=== PATIENT | female | born 1960 | race Caucasian/White ===

== ENCOUNTER 2017-05-05 07:04 | Emergency (ER) | payer BC ==
[2017-05-05 07:26] VITALS: BP 179/107
--- NOTE | 2017-05-05 08:12 | UC ---
Elbow Pain - HPI Summary HPI Summary: left elbow pain x 2 hrs s/p fall on ice this morning , injury to left elbow and left forearm sever pain of the left elbow , no swelling, cannot move her elbow due to sever pain - History of Current Complaint Chief Complaint: UCUpperExtremity Stated Complaint: LEFT ARM INJURY Time Seen by Provider: 05/05/17 07:08 Hx Obtained From: Patient Onset/Duration: Hours - 2, Atraumatic, Still Present Severity Initially: Severe Severity Currently: Severe Pain Intensity: 10 Pain Scale Used: 0-10 Numeric Location Of Pain: Is Discrete @ - left elbow / left forearm Character: Aching, Throbbing Aggravating Factor(s): Movement Alleviating Factor(s): Rest, Ice Associated Signs And Symptoms: Positive: Weakness, Numbness/Tingling. Negative : Swelling, Redness, Bruising, Fever - Allergies/Home Medications Allergies/Adverse Reactions: Allergies Allergy/AdvReac Type Severity Reaction Status Date / Time No Known Allergies Allergy Verified 05/05/17 07:11 Home Medications: Home Medications Cholecalciferol TAB* [Vitamin D TAB*] 1,000 unit PO DAILY 05/05/17 [History Confirmed 05/05/17] Levothyroxine TAB* [Synthroid TAB*] 25 mcg PO DAILY 05/05/17 [History Confirmed 05/05/17] Multivitamin [Multivitamins] 1 cap PO 05/05/17 [History] PMH/Surg Hx/FS Hx/Imm Hx Endocrine History: Thyroid Disease, Hypothyroidism Cancer History: Breast Cancer - Surgical History Surgical History: Yes Surgery Procedure, Year, and Place: MASECTOMY; LUMPECTOMY; HYSTERECTOMY - Family History Known Family History: Negative: Diabetes - Social History Alcohol Use: Rare Substance Use Type: None Smoking Status (MU): Never Smoked Tobacco Review of Systems Constitutional: Negative Skin: Negative Eyes: Negative ENT: Negative Respiratory: Negative Musculoskeletal: Arthralgia - left elbow Is Patient Immunocompromised?: No All Other Systems Reviewed And Are Negative: Yes Physical Exam Triage Information Reviewed: Yes Appearance: Well-Nourished, Pain Distress Vital Signs: Initial Vital Signs Temp 98.4 F 05/05/17 07:13 Pulse 78 05/05/17 07:13 Resp 20 05/05/17 07:13 BP 179/107 05/05/17 07:13 Pulse Ox 100 05/05/17 07:13 Vital Signs Reviewed: Yes Eyes: Positive: Conjunctiva Clear ENT: Positive: Normal ENT inspection, Hearing grossly normal, Pharynx normal Neck exam: Normal Neck: Positive: Supple, Nontender, No Lymphadenopathy Respiratory Exam: Normal Respiratory: Positive: Chest non-tender, Lungs clear, Normal breath sounds Cardiovascular Exam: Normal Cardiovascular: Positive: RRR, No Murmur, Pulses Normal Musculoskeletal: Positive: Other: - left elbow: + radial head tenderness, no swelling , limited ROM on flexion and extension also limited ROM on supination and pronation Neurological: Positive: Alert Psychological Exam: Normal Skin Exam: Normal Elbow Pain Course/Dx - Differential Dx/Diagnosis Provider Diagnoses: fracuture left elbow Discharge - Discharge Plan Condition: Stable Disposition: HOME Patient Education Materials: Elbow Fracture (ED) Referrals: Zeeshan Keane MD [Medical Doctor] - As Soon As Possible Noé Chu DO [Primary Care Provider] -
--- NOTE | 2017-05-05 08:14 | RAD ---
HISTORY: Wrist pain, fall on ice COMPARISONS: None VIEWS: 3, Frontal, lateral, and oblique views of the left wrist FINDINGS: BONE DENSITY: Normal. BONES: There is no displaced fracture. JOINTS: There is no arthropathy. ALIGNMENT: There is no dislocation. SOFT TISSUES: Unremarkable. OTHER FINDINGS: None. IMPRESSION: NO ACUTE OSSEOUS INJURY. IF SYMPTOMS PERSIST, RECOMMEND REPEAT IMAGING.
--- NOTE | 2017-05-05 08:14 | RAD ---
Indication: Left elbow injury, fall ice. 4 views of left elbow demonstrates a fracture through the proximal radial diaphysis extending to the neck of the radius. Mild impaction is noted. IMPRESSION: Fracture through the proximal diaphysis of the radius extending into the neck of the radius.
== END 2017-05-05 08:02 | disposition home or self-care (01) ==
LOC: UCCORT 07:04
DX: S42.402A Unspecified fracture of lower end of left humerus, initial encounter for closed fracture (principal); S52.102A Unspecified fracture of upper end of left radius, initial encounter for closed fracture; S52.135A Nondisplaced fracture of neck of left radius, initial encounter for closed fracture; W00.0XXA Fall on same level due to ice and snow, initial encounter
CPT/HCPCS: 99212; G0463

== ENCOUNTER 2019-11-03 10:04 | Inpatient (IN) ==
[2019-11-03] MEDS ORDERED: NS 0.9% 1000 ml BAG 1,000 ML IV ONE (10:27)
[2019-11-03] MEDS ORDERED: Magnesium Sulfate IV 1GM/100ML 1 GM/100 ML BAG IV ONE (10:27)
[2019-11-03] MEDS ORDERED: Diltiazem IV push/loading dose 5 MG/ML 5 ML vial (25 mg) IV SLOW PU ONE ×2 (10:31→11:10)
[2019-11-03 10:42] LABS: ABS Basophils 0.1 10^3/ul (0-0.2); ABS Eosinophils 0.1 10^3/ul (0-0.6); ABS Lymphocytes 1.6 10^3/ul (1.0-4.8); ABS Monocytes 0.6 10^3/ul (0-0.8); ABS Neutrophils 6.5 10^3/ul (1.5-7.7); Hematocrit 45 % (35-47); Hemoglobin 15.4 g/dL (12.0-16.0); Lymphocyte % 18.1 %; Mean Corpuscular HGB Conc 34 g/dL (31-36); Mean Corpuscular Hemoglobin 32 pg (27-31); Mean Corpuscular Volume 93 fL (80-97); Mean Platelet Volume 9.4 fL (7.4-10.4); Platelet Count 247 10^3/uL (150-450); Red Blood Count 4.86 10^6 /uL (3.70-4.87); Red Cell Distribution Width 15 % (10-15); White Blood Count 8.8 10^3/uL (3.5-10.8)
[2019-11-03 11:11] LABS: Troponin I 0.01 ng/mL (<0.03)
[2019-11-03 11:17] LABS: Albumin 3.5 g/dL (3.2-5.2); Albumin/Globulin Ratio 1.5 (1-3); Calcium 8.9 mg/dL (8.6-10.3); EGFR African American 73.3 (>60); EGFR Non-African American 60.5 (>60); Globulin 2.4 g/dL (2-4); Potassium 3.9 mmol/L (3.5-5.0); Total Bilirubin 0.7 mg/dL (0.2-1.0); Total Protein 5.9 g/dL (6.4-8.9)
[2019-11-03] MEDS ORDERED: Iodixanol (CONTRAST) 320 MG/ML 100 ML SDV IV ONE (11:38)
[2019-11-03] MEDS ORDERED: Diltiazem IV BAG D5W Premix 125 MG/125 ML BAG IV SCH (12:00)
[2019-11-03] MEDS ORDERED: Heparin DRIP 25,000 UNITS BAG 25,000 UNITS/500 ML BAG IV SCH (14:00)
[2019-11-03 14:16] LABS: TSH Ultra Thyroid Stim Horm 3.88 mcIU/mL (0.34-5.60)
[2019-11-03] MEDS ORDERED: Metoprolol Tartrate 5 mg VIAL 5 ml VIAL (1 mg/ml) IV ONE (15:19)
[2019-11-03] MEDS ORDERED: Potassium Chloride LIQUID 20 MEQ/15 ML LIQUID PO ONE (15:19)
[2019-11-03] MEDS: Heparin 5000 UNITS/ML 1 mL VIAL IV SCH (17:26)
[2019-11-03] MEDS: Heparin DRIP 25,000 UNITS BAG 25,000 UNITS/500 ML BAG IV SCH (17:27)
[2019-11-03 17:57] LABS: C Reactive Protein 8.86 mg/L (<8.01); HDL Cholesterol 42.7 mg/dL
[2019-11-03 17:59] LABS: Troponin I 0.01 ng/mL (<0.03)
[2019-11-03] MEDS ORDERED: Digoxin IV 0.5 MG/2 ML AMP (0.25 MG/ML) IV SLOW PU ONE (20:34)
[2019-11-03] MEDS: Diltiazem IV BAG D5W Premix 125 MG/125 ML BAG IV SCH (21:49)
[2019-11-04 03:25] LABS: ABS Basophils 0.1 10^3/ul (0-0.2); ABS Eosinophils 0.1 10^3/ul (0-0.6); ABS Monocytes 0.6 10^3/ul (0-0.8); ABS Neutrophils 3.8 10^3/ul (1.5-7.7); Eosinophil % 1.8 %; Hematocrit 37 % (35-47); Hemoglobin 12.9 g/dL (12.0-16.0); Lymphocyte % 30.4 %; Mean Corpuscular HGB Conc 35 g/dL (31-36); Mean Corpuscular Hemoglobin 32 pg (27-31); Mean Corpuscular Volume 91 fL (80-97); Mean Platelet Volume 9.6 fL (7.4-10.4); Platelet Count 212 10^3/uL (150-450); Red Cell Distribution Width 14 % (10-15); White Blood Count 6.5 10^3/uL (3.5-10.8)
[2019-11-04 03:37] LABS: Calcium 8.1 mg/dL (8.6-10.3); Potassium 4.1 mmol/L (3.5-5.0)
[2019-11-04 03:41] LABS: INR 1.04 (0.82-1.09)
[2019-11-04 03:43] LABS: BUN/Creatinine Ratio 19.5 (8-20); EGFR African American 92.2 (>60); EGFR Non-African American 76.2 (>60)
[2019-11-04] MEDS ORDERED: Metoprolol Tartrate 5 mg VIAL 5 ml VIAL (1 mg/ml) IV ONE (09:14)
[2019-11-04] MEDS ORDERED: Digoxin IV 0.5 MG/2 ML AMP (0.25 MG/ML) IV SLOW PU ONE ×2 (09:15→19:05)
[2019-11-04 13:40] LABS: Body Fluid Source Pleural Fluid
[2019-11-04 15:17] LABS: Body Fluid Mono 39 %; Body Fluid Other Cells 13
[2019-11-04] MEDS: Multivitamins/Minerals TAB PO SCH (15:50)
[2019-11-04] MEDS: Heparin 5000 UNITS/ML 1 mL VIAL IV SCH (21:03)
[2019-11-04] MEDS: Metoprolol Tartrate 5 mg VIAL 5 ml VIAL (1 mg/ml) IV PRN (21:53)
[2019-11-05] MEDS: Heparin DRIP 25,000 UNITS BAG 25,000 UNITS/500 ML BAG IV SCH (00:36)
[2019-11-05] MEDS: Metoprolol Tartrate 5 mg VIAL 5 ml VIAL (1 mg/ml) IV PRN (03:14)
[2019-11-05 03:31] LABS: ABS Eosinophils 0.1 10^3/ul (0-0.6); ABS Lymphocytes 1.2 10^3/ul (1.0-4.8); ABS Monocytes 0.6 10^3/ul (0-0.8); ABS Neutrophils 6.6 10^3/ul (1.5-7.7); Eosinophil % 1.3 %; Hematocrit 40 % (35-47); Hemoglobin 13.8 g/dL (12.0-16.0); Lymphocyte % 14.3 %; Mean Corpuscular HGB Conc 34 g/dL (31-36); Mean Corpuscular Hemoglobin 32 pg (27-31); Mean Corpuscular Volume 92 fL (80-97); Mean Platelet Volume 9.8 fL (7.4-10.4); Platelet Count 193 10^3/uL (150-450); Red Blood Count 4.38 10^6 /uL (3.70-4.87); Red Cell Distribution Width 14 % (10-15); White Blood Count 8.6 10^3/uL (3.5-10.8)
[2019-11-05 03:54] LABS: Calcium 8.5 mg/dL (8.6-10.3); Potassium 4.1 mmol/L (3.5-5.0)
[2019-11-05 03:59] LABS: BUN/Creatinine Ratio 16.9 (8-20); EGFR African American 92.2 (>60); EGFR Non-African American 76.2 (>60)
[2019-11-05] MEDS: Diltiazem IV BAG D5W Premix 125 MG/125 ML BAG IV SCH ×2 (06:04→07:25)
[2019-11-05] MEDS: Multivitamins/Minerals TAB PO SCH (07:26)
[2019-11-05] MEDS: Heparin 5000 UNITS/ML 1 mL VIAL IV SCH (11:51)
[2019-11-05 14:36] LABS: Lactate Dehydrogenase, BF 49 U/L
[2019-11-05] MEDS ORDERED: Ondansetron 4 mg VIAL 2 MG/ML 2 ml VIAL IV PRN (14:49)
[2019-11-05] MEDS ORDERED: Ondansetron 4 mg VIAL 2 MG/ML 2 ml VIAL ONE (14:49)
[2019-11-05 15:08] LABS: Urine Appearance Clear; Urine Bilirubin Negative (Negative); Urine Blood Negative (Negative); Urine Color Yellow; Urine Glucose Negative (Negative); Urine Ketones Negative (Negative); Urine Nitrite Negative (Negative); Urine Protein Negative (Negative); Urine Specific Gravity 1.005 (1.010-1.030); Urine Urobilinogen Negative (Negative)
[2019-11-05 16:34] LABS: Fluid Type, Protein, Total PLEURAL
[2019-11-05 16:34] LABS: Albumin, BF 0.5 g/dL; Fluid Type, Albumin PLEURAL
[2019-11-06] MEDS: Heparin DRIP 25,000 UNITS BAG 25,000 UNITS/500 ML BAG IV SCH (00:59)
[2019-11-06 06:54] LABS: Albumin 2.8 g/dL (3.2-5.2); Albumin/Globulin Ratio 1.2 (1-3); BUN/Creatinine Ratio 14.7 (8-20); Calcium 8.7 mg/dL (8.6-10.3); EGFR African American 95.1 (>60); EGFR Non-African American 78.6 (>60); Globulin 2.3 g/dL (2-4); Potassium 3.8 mmol/L (3.5-5.0); Total Bilirubin 0.6 mg/dL (0.2-1.0); Total Protein 5.1 g/dL (6.4-8.9)
[2019-11-06 07:56] LABS: Hematocrit 37 % (35-47); Hemoglobin 12.7 g/dL (12.0-16.0); Mean Corpuscular HGB Conc 34 g/dL (31-36); Mean Corpuscular Hemoglobin 32 pg (27-31); Mean Corpuscular Volume 92 fL (80-97); Mean Platelet Volume 10.1 fL (7.4-10.4); Platelet Count 213 10^3/uL (150-450); Red Blood Count 4.03 10^6 /uL (3.70-4.87); Red Cell Distribution Width 14 % (10-15); White Blood Count 7.9 10^3/uL (3.5-10.8)
[2019-11-06 07:57] LABS: ABS Lymphocytes 1.4 10^3/ul (1.0-4.8); ABS Monocytes 0.8 10^3/ul (0-0.8); ABS Neutrophils 5.5 10^3/ul (1.5-7.7); Eosinophil % 0.2 %; Lymphocyte % 18.3 %
[2019-11-06] MEDS: Multivitamins/Minerals TAB PO SCH (08:08)
[2019-11-06] MEDS: Heparin 5000 UNITS/ML 1 mL VIAL IV SCH (08:24)
[2019-11-06] MEDS ORDERED: Potassium Chlor 20 meq TAB.ER PO ONE (13:00)
[2019-11-06] MEDS: Metoprolol Tartrate 5 mg VIAL 5 ml VIAL (1 mg/ml) IV PRN (18:21)
[2019-11-07] MEDS: Heparin DRIP 25,000 UNITS BAG 25,000 UNITS/500 ML BAG IV SCH (03:14)
[2019-11-07 05:14] LABS: ABS Eosinophils 0.1 10^3/ul (0-0.6); ABS Lymphocytes 1.9 10^3/ul (1.0-4.8); ABS Monocytes 0.6 10^3/ul (0-0.8); ABS Neutrophils 3.9 10^3/ul (1.5-7.7); Eosinophil % 1.3 %; Hematocrit 38 % (35-47); Hemoglobin 12.7 g/dL (12.0-16.0); Mean Corpuscular HGB Conc 34 g/dL (31-36); Mean Corpuscular Hemoglobin 31 pg (27-31); Mean Corpuscular Volume 93 fL (80-97); Mean Platelet Volume 9.3 fL (7.4-10.4); Nucleated Red Blood Cells % 0.1; Platelet Count 216 10^3/uL (150-450); Red Blood Count 4.05 10^6 /uL (3.70-4.87); Red Cell Distribution Width 14 % (10-15); White Blood Count 6.6 10^3/uL (3.5-10.8)
[2019-11-07 05:30] LABS: Albumin 2.8 g/dL (3.2-5.2); Albumin/Globulin Ratio 1.2 (1-3); Calcium 8.5 mg/dL (8.6-10.3); EGFR Non-African American 63.7 (>60); Globulin 2.3 g/dL (2-4); Potassium 4.3 mmol/L (3.5-5.0); Total Bilirubin 0.3 mg/dL (0.2-1.0); Total Protein 5.1 g/dL (6.4-8.9)
[2019-11-07] MEDS: Multivitamins/Minerals TAB PO SCH (07:41)
[2019-11-07] MEDS: Heparin 5000 UNITS/ML 1 mL VIAL IV SCH (07:48)
[2019-11-07] MEDS ORDERED: Flumazenil 0.5 mg/5 ml 0.1 MG/ML 5 ml VIAL ONE (08:07)
[2019-11-07] MEDS ORDERED: Naloxone 0.4 mg VIAL 0.4 mg/ml 1 ml VIAL ONE (08:07)
[2019-11-07] MEDS ORDERED: fentaNYL 100 mcg/2 ml 50 MCG/ML VIAL ONE (08:07)
[2019-11-07] MEDS ORDERED: Midazolam 5 mg/5 ml VIAL 1 mg/ml 5 ml VIAL (5 mg) ONE (08:07)
[2019-11-07] MEDS ORDERED: Magnesium Sulfate 2 gm BAG 2 GM/50 ML BAG IVPB ONE (08:25)
[2019-11-07 08:58] LABS: Magnesium 1.9 mg/dL (1.9-2.7)
[2019-11-07] MEDS ORDERED: Amiodarone 150 mg IVPREMIX 150 MG/100 ML BAG IV ONE (09:50)
[2019-11-07] MEDS ORDERED: Amiodarone 360 MG IVPREMIX 360 MG/200 ML BAG IV ONE (10:00)
[2019-11-07] MEDS: Enoxaparin 80 MG/0.8 ML SYR SUBCUT SCH (15:28)
[2019-11-07] MEDS: Amiodarone 360 MG IVPREMIX 360 MG/200 ML BAG IV SCH (19:26)
[2019-11-07] MEDS: CMC:Rosuvastatin 10 mg TAB (NF) PO SCH (20:22)
[2019-11-08] MEDS: Enoxaparin 80 MG/0.8 ML SYR SUBCUT SCH ×2 (03:46→16:31)
[2019-11-08 05:53] LABS: ABS Eosinophils 0.1 10^3/ul (0-0.6); ABS Lymphocytes 1.6 10^3/ul (1.0-4.8); ABS Monocytes 0.5 10^3/ul (0-0.8); Eosinophil % 1.2 %; Hematocrit 39 % (35-47); Hemoglobin 13.1 g/dL (12.0-16.0); Mean Corpuscular HGB Conc 34 g/dL (31-36); Mean Corpuscular Hemoglobin 31 pg (27-31); Mean Corpuscular Volume 93 fL (80-97); Mean Platelet Volume 9.5 fL (7.4-10.4); Nucleated Red Blood Cells % 0.1; Platelet Count 252 10^3/uL (150-450); Red Blood Count 4.18 10^6 /uL (3.70-4.87); Red Cell Distribution Width 15 % (10-15); White Blood Count 6.2 10^3/uL (3.5-10.8)
[2019-11-08 06:01] LABS: BUN/Creatinine Ratio 16.7 (8-20); Blood Urea Nitrogen 16 mg/dL (6-24); CO2 Carbon Dioxide 27 mmol/L (22-32); Calcium 8.7 mg/dL (8.6-10.3); Chloride 104 mmol/L (101-111); EGFR African American 71.5 (>60); EGFR Non-African American 59.1 (>60); Glucose 118 mg/dL (70-100); Magnesium 2.1 mg/dL (1.9-2.7); Phosphorus 3.6 mg/dL (2.5-5.0); Sodium 135 mmol/L (135-145)
[2019-11-08 07:15] LABS: Anion Gap 4 mmol/L (2-11)
[2019-11-08] MEDS: Amiodarone 360 MG IVPREMIX 360 MG/200 ML BAG IV SCH (07:44)
[2019-11-08] MEDS: Multivitamins/Minerals TAB PO SCH (07:57)
[2019-11-08] MEDS: CMC:Rosuvastatin 10 mg TAB (NF) PO SCH (20:47)
[2019-11-09] MEDS: Enoxaparin 80 MG/0.8 ML SYR SUBCUT SCH ×2 (04:05→17:45)
[2019-11-09] MEDS ORDERED: Naloxone 4 mg VIAL 0.4 MG/ML 10 ml VIAL (4 mg) ONE (08:55)
[2019-11-09] MEDS ORDERED: Midazolam 5 mg/5 ml VIAL 1 mg/ml 5 ml VIAL (5 mg) ONE (08:55)
[2019-11-09] MEDS ORDERED: Flumazenil 0.5 mg/5 ml 0.1 MG/ML 5 ml VIAL ONE (08:55)
[2019-11-09] MEDS ORDERED: fentaNYL 100 mcg/2 ml 50 MCG/ML VIAL ONE (08:55)
[2019-11-09] MEDS ORDERED: Amiodarone IV 150 mg/3 ml VIAL ONE (09:25)
[2019-11-09] MEDS: Amiodarone 150 mg IVPREMIX 150 MG/100 ML BAG IV ONE ×2 (09:54→09:55)
[2019-11-09] MEDS: Multivitamins/Minerals TAB PO SCH (10:15)
[2019-11-09] MEDS: CMC:Rosuvastatin 10 mg TAB (NF) PO SCH (21:07)
[2019-11-10] MEDS: Enoxaparin 80 MG/0.8 ML SYR SUBCUT SCH (06:46)
[2019-11-10 09:11] LABS: ABS Eosinophils 0.1 10^3/ul (0-0.6); ABS Lymphocytes 1.3 10^3/ul (1.0-4.8); ABS Monocytes 0.9 10^3/ul (0-0.8); ABS Neutrophils 5.8 10^3/ul (1.5-7.7); Eosinophil % 0.6 %; Hematocrit 36 % (35-47); Lymphocyte % 15.9 %; Mean Corpuscular HGB Conc 34 g/dL (31-36); Mean Corpuscular Hemoglobin 31 pg (27-31); Mean Corpuscular Volume 91 fL (80-97); Platelet Count 252 10^3/uL (150-450); Red Blood Count 3.89 10^6 /uL (3.70-4.87); Red Cell Distribution Width 14 % (10-15)
[2019-11-10 09:29] LABS: BUN/Creatinine Ratio 14.9 (8-20); Calcium 8.7 mg/dL (8.6-10.3); EGFR African American 80.1 (>60); EGFR Non-African American 66.2 (>60)
[2019-11-10] MEDS: Multivitamins/Minerals TAB PO SCH (09:41)
[2019-11-10] MEDS ORDERED: Enoxaparin 80 MG/0.8 ML SYR SUBCUT SCH (18:00)
[2019-11-10] MEDS ORDERED: Metoprolol Tartrate 5 mg VIAL 5 ml VIAL (1 mg/ml) IV PRN (18:24)
[2019-11-10] MEDS: CMC:Rosuvastatin 10 mg TAB (NF) PO SCH (21:17)
[2019-11-11 08:09] LABS: ABS Eosinophils 0.1 10^3/ul (0-0.6); ABS Lymphocytes 1.4 10^3/ul (1.0-4.8); ABS Monocytes 0.7 10^3/ul (0-0.8); ABS Neutrophils 5.1 10^3/ul (1.5-7.7); Eosinophil % 1.6 %; Hematocrit 36 % (35-47); Hemoglobin 12.4 g/dL (12.0-16.0); Lymphocyte % 19.2 %; Mean Corpuscular HGB Conc 34 g/dL (31-36); Mean Corpuscular Hemoglobin 31 pg (27-31); Mean Corpuscular Volume 91 fL (80-97); Mean Platelet Volume 8.4 fL (7.4-10.4); Platelet Count 290 10^3/uL (150-450); Red Blood Count 3.98 10^6 /uL (3.70-4.87); Red Cell Distribution Width 14 % (10-15); White Blood Count 7.5 10^3/uL (3.5-10.8)
[2019-11-11] MEDS: Multivitamins/Minerals TAB PO SCH (08:20)
[2019-11-11 08:26] LABS: BUN/Creatinine Ratio 16.5 (8-20); Calcium 8.5 mg/dL (8.6-10.3); EGFR Non-African American 62.8 (>60); Potassium 4.5 mmol/L (3.5-5.0)
[2019-11-11 12:20] VITALS: BP 118/71
== END 2019-11-11 17:45 | disposition home or self-care (01) | DRG 201 ==
LOC: ED 10:04 → ICU 13:48 → MED 11-09 13:16
PROVIDERS: ADMIT Internal Medicine; ATTEND Internal Medicine